=== PATIENT | male | born 1955 | race Caucasian/White ===

== ENCOUNTER 2023-12-11 16:08 | Emergency (ER) | payer MEDICARE, OTHER ==
[~2023-12-11] VITALS: Ht 172.7 cm; Wt 93.9 kg
[2023-12-11 16:08] VITALS: PULSE 115; RESP 16; TEMP 98.4; O2SAT 97
[2023-12-11] MEDS ORDERED: LIDOCAINE HCL 1% LOCAL INJ 20 ML VIAL INJ ONE (16:15)
[2023-12-11] MEDS: TETANUS/DIPHTHERIA TOX ADULT 0.5 ML SYR IM ONE (16:44)
[2023-12-11] MEDS: HYDROCODONE/APAP 7.5MG-325MG 1 EA TAB PO ONE (17:09)
== END 2023-12-11 18:35 | disposition home or self-care (01) ==
LOC: ER 16:17
DX: S71.112A Laceration without foreign body, left thigh, initial encounter (principal); W29.3XXA Contact with powered garden and outdoor hand tools and machinery, initial encounter; Y92.89 Other specified places as the place of occurrence of the external cause; E11.9 Type 2 diabetes mellitus without complications
CPT/HCPCS: 90471; 90714; 99283; J2001